=== PATIENT | male | born 1990 | race Caucasian/White ===

== ENCOUNTER 2019-01-01 09:03 | Emergency (ER) | payer MEDICAID ==
[~2019-01-01] VITALS: Ht 182.9 cm; Wt 117.3 kg
[~2019-01-01 09:03] MED LIST: CEPH-443 PO; IBUP-1542 PO; METF-849 PO; SULF1TAB31 PO
[2019-01-01 09:17] VITALS: Ht 182.9 cm; Wt 117.3 kg
[2019-01-01] MEDS ORDERED: ONDANSETRON 4 MG INJ IV STA (09:29)
[2019-01-01] MEDS ORDERED: SOD CHLORIDE 0.9% 1,000 ML IV STA (09:29)
[2019-01-01] MEDS ORDERED: LACTATED RINGER'S 1,000 ML IV STA (09:29)
[2019-01-01] MEDS ORDERED: INSULIN LISPRO 100 UNIT/ML VIAL SC ONE (09:30)
[2019-01-01] MEDS ORDERED: ACCU-CHEK XX ONE (10:00)
[2019-01-01 12:00] VITALS: BP 124/80; PULSE 81; RESP 18
== END 2019-01-01 12:26 | disposition home or self-care (01) ==
LOC: E/R 09:03
DX: E11.65 Type 2 diabetes mellitus with hyperglycemia (principal); F17.210 Nicotine dependence, cigarettes, uncomplicated; R10.9 Unspecified abdominal pain; Z79.84 Long term (current) use of oral hypoglycemic drugs
CPT/HCPCS: 36415; 71045; 80053; 80307; 81003; 82962; 83036; 83690; 84484; 85025; 93005; 96372; 96374; J1815; J2405; J7030; J7120; Z7502